=== PATIENT | male | born 1955 | race Caucasian/White ===

== ENCOUNTER 2016-04-10 16:31 | Emergency (ER) | payer MEDICARE, MEDICAID ==
[~2016-04-10] VITALS: Ht 182.9 cm; Wt 79.5 kg
[~2016-04-10 16:31] MED LIST: DULO20CA30 PO; GABA-531 PO; GABA400C PO; MAG1CAPS4 PO; OLAN10TA22 PO
[2016-04-10] MEDS ORDERED: SIME120L PO (17:02)
[2016-04-10] MEDS ORDERED: NAPR-58 PO (17:02)
[2016-04-10] MEDS ORDERED: OLAN10TA3 PO (17:02)
[2016-04-10] MEDS ORDERED: MOM30 PO (17:02)
[2016-04-10 19:32] VITALS: BP 144/105
[2016-04-10] MEDS ORDERED: TraMADol HCL 50 MG TABLET PO ONE (19:45)
[2016-04-10] MEDS ORDERED: LORazepam 2 MG/ML VIAL IM ONE (20:15)
== END 2016-04-10 20:36 | disposition home or self-care (01) ==
LOC: EMS 16:34
DX: S09.90XA Unspecified injury of head, initial encounter (principal); M62.838 Other muscle spasm; J44.9 Chronic obstructive pulmonary disease, unspecified; F17.210 Nicotine dependence, cigarettes, uncomplicated; Z91.030 Bee allergy status; W21.09XA Struck by other hit or thrown ball, initial encounter; Y93.89 Activity, other specified; Y92.89 Other specified places as the place of occurrence of the external cause; Y99.8 Other external cause status
CPT/HCPCS: 70450; 72125; 96372; 99284; J2060

== ENCOUNTER 2016-12-15 10:00 | Inpatient (IN) | payer MEDICARE ==
[~2016-12-15] VITALS: Ht 180.3 cm; Wt 68.0 kg
[~2016-12-15 10:00] MED LIST changes: -GABA-531 PO; +MOM30 PO; +NAPR-58 PO; +OLAN10TA3 PO; +SIME120L PO
[2016-12-15] MEDS ORDERED: GuaiFENesin/D-METHORPHAN [SUGAR-FREE] 200-20MG/10 ML SYRUP UDCUP PO PRN (10:15)
[2016-12-15] MEDS ORDERED: PROMETHAZINE HCL 25 MG TABLET PO PRN (10:15)
[2016-12-15] MEDS ORDERED: ZOLPIDEM TARTRATE 10 MG TABLET PO PRN (10:15)
[2016-12-15] MEDS ORDERED: MAGNESIUM HYDROXIDE SUSPENSION 30 ML UDCUP PO PRN (10:15)
[2016-12-15] MEDS ORDERED: RisperiDONE 1 MG TABLET PO PRN (10:15)
[2016-12-15] MEDS ORDERED: TUBERCULIN, PURIFIED PROTEIN DERIVATIVE 5 TU/0.1 ML SYG ID ONE (10:15)
[2016-12-15] MEDS ORDERED: MAG HYDROX/AL HYDROX/SIMETH ES 30 ML SUSPENSION UDCUP PO PRN (10:15)
[2016-12-15] MEDS ORDERED: ACETAMINOPHEN 325 MG TABLET PO PRN (10:15)
[2016-12-15] MEDS ORDERED: HydrOXYzine PAMOATE 50 MG CAPSULE PO PRN (10:15)
[2016-12-15] MEDS ORDERED: LOPERAMIDE HCL 2 MG CAPSULE PO PRN (10:15)
[2016-12-15] MEDS ORDERED: LORazepam 2 MG/ML VIAL IM ONE (12:30)
[2016-12-15] MEDS ORDERED: DiphenhydrAMINE HCL 50 MG/ML VIAL IM ONE (12:30)
[2016-12-15] MEDS ORDERED: HALOPERIDOL LACTATE 5 MG/ML VIAL IM ONE (12:30)
[2016-12-15] MEDS: GABAPENTIN 300 MG CAPSULE PO SCH ×3 (13:00→20:35)
[2016-12-15] MEDS ORDERED: RISP2 PO (13:11)
[2016-12-15] MEDS ORDERED: OLAN10TA3 PO (13:11)
[2016-12-15] MEDS ORDERED: RISPC50 IM (13:11)
[2016-12-15] MEDS ORDERED: GABA-531 PO (13:11)
[2016-12-15] MEDS ORDERED: NAPR-58 PO (13:11)
[2016-12-15] MEDS ORDERED: DULO20CA30 PO (13:11)
[2016-12-15 13:29] VITALS: BP 144/72
[2016-12-15] MEDS ORDERED: PNEUMOCOCCAL VACCINE POLYVALENT 0.5 ML VIAL [PPSV23] IM ONE (15:15)
[2016-12-15] MEDS ORDERED: INFLUENZA VIRUS VACCINE QVS 2017-18 (3YR+)/PF 60 MCG/0.5 ML SYRINGE IM ONE (15:15)
[2016-12-15 16:00] VITALS: BP 138/69
[2016-12-15] MEDS ORDERED: RisperiDONE MICROSPHERES 50 MG/2 ML SYRINGE IM ONE (16:00)
[2016-12-15] MEDS: THIAMINE HCL 100 MG TABLET PO SCH (16:52)
[2016-12-15] MEDS: LORazepam 2 MG TABLET PO PRN (16:53)
[2016-12-15] MEDS: RisperiDONE 3 MG TABLET PO SCH (20:35)
[2016-12-15] MEDS: DIVALPROEX SODIUM 500 MG ER TABLET PO SCH (20:35)
[2016-12-16 08:07] VITALS: BP 104/67
[2016-12-16 08:28] LABS: BASOPHILS % (AUTO) 0.2 % (0.0-2.0); EOSINOPHILS % (AUTO) 2.7 % (1.0-6.0); HEMATOCRIT 44.6 % (41-53); LYMPHOCYTES # (AUTO) 1.7 K/uL (1.0-4.8); LYMPHOCYTES % (AUTO) 24.3 % (22.0-44.0); MEAN CORPUSCULAR HEMOGLOBIN 32.2 pg (26.0-34.0); MEAN CORPUSCULAR HGB CONC 33.7 G/dL (31.0-37.0); MEAN CORPUSCULAR VOLUME 96 fL (80-100); MONOCYTES # (AUTO) 0.4 K/uL (0.1-1.0); MONOCYTES % (AUTO) 5.8 % (2.0-9.0); NEUTROPHILS # (AUTO) 4.7 K/uL (1.8-7.7); RED BLOOD CELL COUNT(AUTO) 4.66 MIL/uL (4.50-5.90); RED CELL DISTRIBUTION WIDTH 14.5 % (11.5-14.5)
[2016-12-16 08:46] LABS: HEMOGLOBIN A1C 5.2 % (4.5-6.2)
[2016-12-16 08:53] LABS: ALANINE AMINOTRANSFERASE 31 U/L (12-78); ALBUMIN 3.4 g/dL (3.4-5.0); ANION GAP 7 mmol/L (8-16); ASPARTATE AMINOTRANSFERASE 42 U/L (15-37); BILIRUBIN,TOTAL 0.6 mg/dL (0.1-1.0); CALCIUM, TOTAL 8.4 mg/dL (8.8-10.5); CARBON DIOXIDE 26 mmol/L (22-29); CHLORIDE 109 mmol/L (98-107); CHOL/HDL RATIO 2.4 (4.2-7.3); GLOMERULAR FILTR. RATE CALC > 60 mL/min (>60); POTASSIUM 4.3 mmol/L (3.5-5.1); SODIUM SERUM 142 mmol/L (136-145); THYROID STIMULATING HORMONE 1.17 uIU/mL (0.36-3.74); TOTAL PROTEIN, SERUM 6.6 g/dL (6.4-8.2); UREA NITROGEN, BLOOD 17 mg/dL (7-18)
[2016-12-16] MEDS ORDERED: RisperiDONE MICROSPHERES 50 MG/2 ML SYRINGE IM ONE (09:00)
[2016-12-16 09:28] LABS: PLATELET COUNT (AUTO) 86 K/uL (150-450)
[2016-12-16] MEDS: THIAMINE HCL 100 MG TABLET PO SCH ×2 (09:53→17:00)
[2016-12-16] MEDS: NALTREXONE HCL 50 MG TABLET PO SCH (09:53)
[2016-12-16] MEDS: GABAPENTIN 300 MG CAPSULE PO SCH ×4 (09:53→20:27)
[2016-12-16] MEDS: FOLIC ACID 1 MG TABLET PO SCH (09:53)
[2016-12-16] MEDS: LORazepam 2 MG TABLET PO PRN (09:54)
[2016-12-16] MEDS: MULTIVITAMINS WITH MINERALS, THERAPEUTIC TABLET PO SCH (09:54)
[2016-12-16 16:00] VITALS: BP 135/84
[2016-12-16] MEDS: RisperiDONE 3 MG TABLET PO SCH (20:27)
[2016-12-16] MEDS: DIVALPROEX SODIUM 500 MG ER TABLET PO SCH (20:27)
[2016-12-17 06:12] LABS: HEPATITIS Bs ANTIGEN SCREEN P Negative (Negative); HEPATITIS C AB SCREEN >11.0 s/co ratio (0.0-0.9)
[2016-12-17 06:30] VITALS: BP 116/63
[2016-12-17 08:05] VITALS: BP 116/83
[2016-12-17] MEDS: MULTIVITAMINS WITH MINERALS, THERAPEUTIC TABLET PO SCH (08:40)
[2016-12-17] MEDS: GABAPENTIN 300 MG CAPSULE PO SCH ×4 (08:40→20:22)
[2016-12-17] MEDS: FOLIC ACID 1 MG TABLET PO SCH (08:40)
[2016-12-17] MEDS: NALTREXONE HCL 50 MG TABLET PO SCH (08:40)
[2016-12-17] MEDS: THIAMINE HCL 100 MG TABLET PO SCH ×2 (08:41→16:52)
[2016-12-17] MEDS: LORazepam 2 MG TABLET PO PRN (08:48)
[2016-12-17 16:00] VITALS: BP 138/88
[2016-12-17] MEDS: RisperiDONE 3 MG TABLET PO SCH (20:22)
[2016-12-17] MEDS: DIVALPROEX SODIUM 500 MG ER TABLET PO SCH (20:22)
[2016-12-18 06:21] VITALS: BP 113/71
[2016-12-18 08:05] VITALS: BP 117/84
[2016-12-18] MEDS: THIAMINE HCL 100 MG TABLET PO SCH ×2 (08:46→16:37)
[2016-12-18] MEDS: MULTIVITAMINS WITH MINERALS, THERAPEUTIC TABLET PO SCH (08:46)
[2016-12-18] MEDS: GABAPENTIN 300 MG CAPSULE PO SCH ×4 (08:46→20:22)
[2016-12-18] MEDS: NALTREXONE HCL 50 MG TABLET PO SCH (08:46)
[2016-12-18] MEDS: FOLIC ACID 1 MG TABLET PO SCH (08:55)
[2016-12-18 16:25] VITALS: BP 121/83
[2016-12-18] MEDS: LORazepam 2 MG TABLET PO PRN (16:37)
[2016-12-18] MEDS: DIVALPROEX SODIUM 500 MG ER TABLET PO SCH (20:22)
[2016-12-18] MEDS: RisperiDONE 3 MG TABLET PO SCH (20:22)
[2016-12-19 06:14] VITALS: BP 114/78
[2016-12-19 08:25] VITALS: BP 106/80
[2016-12-19] MEDS: FOLIC ACID 1 MG TABLET PO SCH (08:44)
[2016-12-19] MEDS: MULTIVITAMINS WITH MINERALS, THERAPEUTIC TABLET PO SCH (08:44)
[2016-12-19] MEDS: THIAMINE HCL 100 MG TABLET PO SCH ×2 (08:44→16:26)
[2016-12-19] MEDS: NALTREXONE HCL 50 MG TABLET PO SCH (08:44)
[2016-12-19] MEDS: GABAPENTIN 300 MG CAPSULE PO SCH (08:45)
[2016-12-19] MEDS: LORazepam 2 MG TABLET PO PRN ×2 (10:14→14:25)
[2016-12-19] MEDS: GABAPENTIN 400 MG CAPSULE PO SCH ×3 (13:08→20:08)
[2016-12-19 16:00] VITALS: BP 134/88
[2016-12-19] MEDS: RisperiDONE 3 MG TABLET PO SCH (20:08)
[2016-12-19] MEDS: DIVALPROEX SODIUM 500 MG ER TABLET PO SCH (20:08)
[2016-12-20 05:53] VITALS: BP 127/85
[2016-12-20 08:06] VITALS: BP 109/76
[2016-12-20] MEDS: MULTIVITAMINS WITH MINERALS, THERAPEUTIC TABLET PO SCH (08:29)
[2016-12-20] MEDS: GABAPENTIN 400 MG CAPSULE PO SCH ×4 (08:29→20:20)
[2016-12-20] MEDS: NALTREXONE HCL 50 MG TABLET PO SCH (08:29)
[2016-12-20] MEDS: THIAMINE HCL 100 MG TABLET PO SCH ×2 (08:29→17:01)
[2016-12-20] MEDS: FOLIC ACID 1 MG TABLET PO SCH (08:30)
[2016-12-20] MEDS: LORazepam 2 MG TABLET PO PRN ×2 (08:30→17:01)
[2016-12-20 16:00] VITALS: BP 124/80
[2016-12-20] MEDS: RisperiDONE 3 MG TABLET PO SCH (20:20)
[2016-12-20] MEDS: DIVALPROEX SODIUM 500 MG ER TABLET PO SCH (20:20)
[2016-12-21 02:20] VITALS: BP 115/88
[2016-12-21 08:12] VITALS: BP 138/89
[2016-12-21] MEDS: GABAPENTIN 400 MG CAPSULE PO SCH ×4 (08:15→20:36)
[2016-12-21] MEDS: MULTIVITAMINS WITH MINERALS, THERAPEUTIC TABLET PO SCH (08:15)
[2016-12-21] MEDS: NALTREXONE HCL 50 MG TABLET PO SCH (08:15)
[2016-12-21] MEDS: FOLIC ACID 1 MG TABLET PO SCH (08:15)
[2016-12-21] MEDS: THIAMINE HCL 100 MG TABLET PO SCH ×2 (08:15→16:38)
[2016-12-21] MEDS: LORazepam 2 MG TABLET PO PRN ×2 (08:23→16:36)
[2016-12-21 16:01] VITALS: BP 128/88
[2016-12-21] MEDS: RisperiDONE 3 MG TABLET PO SCH (20:37)
[2016-12-21] MEDS: DIVALPROEX SODIUM 500 MG ER TABLET PO SCH (20:37)
[2016-12-22 03:29] VITALS: BP 120/77
[2016-12-22 08:23] VITALS: BP 126/71
[2016-12-22] MEDS: FOLIC ACID 1 MG TABLET PO SCH (08:43)
[2016-12-22] MEDS: THIAMINE HCL 100 MG TABLET PO SCH ×2 (08:43→16:33)
[2016-12-22] MEDS: GABAPENTIN 400 MG CAPSULE PO SCH (08:43)
[2016-12-22] MEDS: LORazepam 2 MG TABLET PO PRN (08:44)
[2016-12-22] MEDS: MULTIVITAMINS WITH MINERALS, THERAPEUTIC TABLET PO SCH (08:44)
[2016-12-22] MEDS: NALTREXONE HCL 50 MG TABLET PO SCH (08:44)
[2016-12-22 09:18] LABS: ALANINE AMINOTRANSFERASE 35 U/L (12-78); ALBUMIN 3.9 g/dL (3.4-5.0); ANION GAP 9 mmol/L (8-16); ASPARTATE AMINOTRANSFERASE 33 U/L (15-37); BILIRUBIN,TOTAL 0.6 mg/dL (0.1-1.0); CALCIUM, TOTAL 8.9 mg/dL (8.8-10.5); CARBON DIOXIDE 28 mmol/L (22-29); CHLORIDE 104 mmol/L (98-107); CREATININE 0.98 mg/dL (0.60-1.30); GLOMERULAR FILTR. RATE CALC > 60 mL/min (>60); POTASSIUM 3.8 mmol/L (3.5-5.1); SODIUM SERUM 141 mmol/L (136-145); UREA NITROGEN, BLOOD 23 mg/dL (7-18)
[2016-12-22] MEDS: GABAPENTIN 300 MG CAPSULE PO SCH ×3 (13:03→20:26)
[2016-12-22] MEDS ORDERED: LORazepam 0.5 MG TABLET PO PRN (14:15)
[2016-12-22 16:00] VITALS: BP 135/88
[2016-12-22] MEDS: DIVALPROEX SODIUM 500 MG ER TABLET PO SCH (20:26)
[2016-12-22] MEDS ORDERED: RisperiDONE 4 MG TABLET PO SCH (21:00)
[2016-12-23 07:12] VITALS: BP 142/87
[2016-12-23 08:23] VITALS: BP 135/79
[2016-12-23] MEDS: GABAPENTIN 300 MG CAPSULE PO SCH ×2 (08:59→13:10)
[2016-12-23] MEDS: MULTIVITAMINS WITH MINERALS, THERAPEUTIC TABLET PO SCH (08:59)
[2016-12-23] MEDS: THIAMINE HCL 100 MG TABLET PO SCH ×2 (08:59→16:01)
[2016-12-23] MEDS: NALTREXONE HCL 50 MG TABLET PO SCH (08:59)
[2016-12-23] MEDS: FOLIC ACID 1 MG TABLET PO SCH (08:59)
[2016-12-23 16:03] VITALS: BP 138/88
[2016-12-23] MEDS: GABAPENTIN 100 MG CAPSULE PO SCH ×2 (16:03→20:10)
[2016-12-23] MEDS: DIVALPROEX SODIUM 500 MG ER TABLET PO SCH (20:10)
[2016-12-23] MEDS: RisperiDONE 2 MG TABLET PO SCH (20:10)
[2016-12-24 06:58] VITALS: BP 117/68
[2016-12-24 08:09] VITALS: BP 106/67
[2016-12-24] MEDS: FOLIC ACID 1 MG TABLET PO SCH (08:34)
[2016-12-24] MEDS: MULTIVITAMINS WITH MINERALS, THERAPEUTIC TABLET PO SCH (08:35)
[2016-12-24] MEDS: NALTREXONE HCL 50 MG TABLET PO SCH (08:35)
[2016-12-24] MEDS: GABAPENTIN 100 MG CAPSULE PO SCH ×5 (08:35→20:26)
[2016-12-24] MEDS: THIAMINE HCL 100 MG TABLET PO SCH ×2 (08:35→16:16)
[2016-12-24 16:22] VITALS: BP 134/82
[2016-12-24] MEDS: RisperiDONE 2 MG TABLET PO SCH (20:26)
[2016-12-24] MEDS: DIVALPROEX SODIUM 500 MG ER TABLET PO SCH (20:26)
[2016-12-25 06:41] VITALS: BP 124/88
[2016-12-25 08:20] VITALS: BP 135/83
[2016-12-25 08:27] LABS: GLUCOSE,POINT OF CARE 121 MG/DL (70-110)
[2016-12-25] MEDS: MULTIVITAMINS WITH MINERALS, THERAPEUTIC TABLET PO SCH (09:06)
[2016-12-25] MEDS: NALTREXONE HCL 50 MG TABLET PO SCH (09:07)
[2016-12-25] MEDS: FOLIC ACID 1 MG TABLET PO SCH (09:07)
[2016-12-25] MEDS: THIAMINE HCL 100 MG TABLET PO SCH (09:07)
[2016-12-25] MEDS: GABAPENTIN 100 MG CAPSULE PO SCH ×4 (09:07→20:36)
[2016-12-25] MEDS ORDERED: DIVA500T52 PO (14:23)
[2016-12-25] MEDS ORDERED: GABA-529 PO (14:23)
[2016-12-25] MEDS ORDERED: RISP2 PO (14:23)
[2016-12-25] MEDS ORDERED: NALT50TA PO (14:23)
[2016-12-25] MEDS ORDERED: RISPC50 IM (14:23)
[2016-12-25 16:00] VITALS: BP 132/79
[2016-12-25 16:58] LABS: GLUCOSE,POINT OF CARE 100 MG/DL (70-110)
[2016-12-25] MEDS: DIVALPROEX SODIUM 500 MG ER TABLET PO SCH (20:35)
[2016-12-25] MEDS: RisperiDONE 2 MG TABLET PO SCH (20:36)
[2016-12-25 21:17] LABS: GLUCOSE,POINT OF CARE 120 MG/DL (70-110)
[2016-12-26 06:28] VITALS: BP 131/85
[2016-12-26 07:22] LABS: GLUCOSE,POINT OF CARE 157 MG/DL (70-110)
[2016-12-26 08:18] VITALS: BP 135/76
[2016-12-26] MEDS: MULTIVITAMINS WITH MINERALS, THERAPEUTIC TABLET PO SCH (09:13)
[2016-12-26] MEDS: GABAPENTIN 100 MG CAPSULE PO SCH ×2 (09:13→13:02)
[2016-12-26] MEDS: NALTREXONE HCL 50 MG TABLET PO SCH (09:13)
[2016-12-26] MEDS ORDERED: DIVA500T52 PO (09:40)
[2016-12-26] MEDS ORDERED: NALT50TA6 PO (09:41)
[2016-12-26] MEDS ORDERED: GABA-529 PO (09:41)
[2016-12-30] MEDS ORDERED: RisperiDONE MICROSPHERES 50 MG/2 ML SYRINGE IM SCH (09:00)
== END 2016-12-26 13:00 | disposition home or self-care (01) | DRG 885 ==
LOC: B3A 10:00
PROVIDERS: ADMIT Psychiatry & Neurology Psychiatry; ATTEND Psychiatry & Neurology Psychiatry
DX: F25.9 Schizoaffective disorder, unspecified (principal); B19.10 Unspecified viral hepatitis B without hepatic coma; D69.6 Thrombocytopenia, unspecified; G40.909 Epilepsy, unspecified, not intractable, without status epilepticus; Z91.19 Patient's noncompliance with other medical treatment and regimen; B17.9 Acute viral hepatitis, unspecified; Z28.21 Immunization not carried out because of patient refusal; B18.2 Chronic viral hepatitis C; F12.90 Cannabis use, unspecified, uncomplicated; F17.210 Nicotine dependence, cigarettes, uncomplicated; I10 Essential (primary) hypertension; J44.9 Chronic obstructive pulmonary disease, unspecified; Z82.49 Family history of ischemic heart disease and other diseases of the circulatory system; M54.9 Dorsalgia, unspecified; R79.89 Other specified abnormal findings of blood chemistry; Z59.9 Problem related to housing and economic circumstances, unspecified; Z63.9 Problem related to primary support group, unspecified; Z80.9 Family history of malignant neoplasm, unspecified
CPT/HCPCS: 80074; 82105; 82962; 83036; 84439; 84443; 86592; 90471; J2794

== ENCOUNTER 2017-08-27 22:37 | Emergency (ER) | payer MEDICARE, MEDICAID ==
[~2017-08-27] VITALS: Ht 182.9 cm; Wt 63.2 kg
[~2017-08-27 22:37] MED LIST changes: +DIVA500T52 PO; -DULO20CA30 PO; +GABA-529 PO; -GABA400C PO; -MAG1CAPS4 PO; -MOM30 PO; +NALT50TA PO; +NALT50TA6 PO; -NAPR-58 PO; -OLAN10TA22 PO; -OLAN10TA3 PO; +RISP2 PO; +RISPC50 IM; -SIME120L PO
[2017-08-28] MEDS ORDERED: KETOROLAC TROMETHAMINE 30 MG/ML VIAL IM ONE (00:30)
[2017-08-28 00:59] VITALS: BP 128/88
== END 2017-08-28 01:35 | disposition home or self-care (01) ==
LOC: EMS 22:38
DX: S20.212A Contusion of left front wall of thorax, initial encounter (principal); J44.9 Chronic obstructive pulmonary disease, unspecified; F17.210 Nicotine dependence, cigarettes, uncomplicated; Z91.030 Bee allergy status; W18.30XA Fall on same level, unspecified, initial encounter; Y93.89 Activity, other specified; Y92.89 Other specified places as the place of occurrence of the external cause; Y99.8 Other external cause status
CPT/HCPCS: 71100; 96372; 99284; J1885

== ENCOUNTER 2017-11-27 10:58 | Inpatient (IN) | payer MEDICARE, MEDICAID ==
[~2017-11-27] VITALS: Ht 182.9 cm; Wt 59.0 kg
[2017-11-27] MEDS ORDERED: OLANZapine 5 MG RAPDIS TABLET PO PRN (11:15)
[2017-11-27] MEDS ORDERED: HALOPERIDOL LACTATE 5 MG/ML VIAL IM ONE (11:15)
[2017-11-27] MEDS ORDERED: MAG HYDROX/AL HYDROX/SIMETH ES 30 ML SUSPENSION UDCUP PO PRN (11:15)
[2017-11-27] MEDS ORDERED: HydrOXYzine PAMOATE 50 MG CAPSULE PO PRN (11:15)
[2017-11-27] MEDS ORDERED: LOPERAMIDE HCL 2 MG CAPSULE PO PRN (11:15)
[2017-11-27] MEDS ORDERED: GuaiFENesin/D-METHORPHAN [SUGAR-FREE] 200-20MG/10 ML SYRUP UDCUP PO PRN (11:15)
[2017-11-27] MEDS ORDERED: DiphenhydrAMINE HCL 50 MG/ML VIAL IM ONE (11:15)
[2017-11-27] MEDS ORDERED: PROMETHAZINE HCL 25 MG TABLET PO PRN (11:15)
[2017-11-27] MEDS ORDERED: LORazepam 2 MG/ML VIAL IM ONE (11:15)
[2017-11-27 11:20] VITALS: BP 119/80
[2017-11-27] MEDS ORDERED: RisperiDONE 1 MG TABLET PO PRN (11:30)
[2017-11-27] MEDS: GABAPENTIN 100 MG CAPSULE PO SCH ×3 (13:00→20:55)
[2017-11-27] MEDS ORDERED: PNEUMOCOCCAL VACCINE POLYVALENT 0.5 ML VIAL [PPSV23] IM ONE (14:45)
[2017-11-27] MEDS ORDERED: RisperiDONE MICROSPHERES 50 MG/2 ML SYRINGE IM ONE (16:00)
[2017-11-27 16:39] VITALS: BP 135/77
[2017-11-27] MEDS: THIAMINE HCL 100 MG TABLET PO SCH (17:20)
[2017-11-27] MEDS: RisperiDONE 2 MG TABLET PO SCH (20:55)
[2017-11-27] MEDS ORDERED: OLANZapine 5 MG RAPDIS TABLET PO SCH (21:00)
[2017-11-28 05:36] VITALS: BP 143/78
[2017-11-28 08:13] LABS: BASOPHILS % (AUTO) 0.5 % (0.0-2.0); HEMATOCRIT 41.5 % (41-53); LYMPHOCYTES # (AUTO) 1.5 K/uL (1.0-4.8); LYMPHOCYTES % (AUTO) 20.4 % (22.0-44.0); MEAN CORPUSCULAR HEMOGLOBIN 32.4 pg (26.0-34.0); MEAN CORPUSCULAR HGB CONC 33.6 G/dL (31.0-37.0); MEAN CORPUSCULAR VOLUME 96 fL (80-100); MONOCYTES # (AUTO) 0.4 K/uL (0.1-1.0); NEUTROPHILS # (AUTO) 5.1 K/uL (1.8-7.7); NEUTROPHILS % (AUTO) 71.1 % (40.0-70.0); PLATELET COUNT (AUTO) 101 K/uL (150-450); RED BLOOD CELL COUNT(AUTO) 4.31 MIL/uL (4.50-5.90); RED CELL DISTRIBUTION WIDTH 14.5 % (11.5-14.5)
[2017-11-28 08:24] LABS: HEMOGLOBIN A1C 4.9 % (4.5-6.2)
[2017-11-28] MEDS: MULTIVITAMINS WITH MINERALS, THERAPEUTIC TABLET PO SCH (08:40)
[2017-11-28] MEDS: NALTREXONE HCL 50 MG TABLET PO SCH (08:40)
[2017-11-28] MEDS: THIAMINE HCL 100 MG TABLET PO SCH ×2 (08:40→16:24)
[2017-11-28] MEDS: FOLIC ACID 1 MG TABLET PO SCH (08:40)
[2017-11-28] MEDS: GABAPENTIN 100 MG CAPSULE PO SCH ×4 (08:40→20:53)
[2017-11-28 08:45] LABS: ALANINE AMINOTRANSFERASE 32 U/L (12-78); ALBUMIN 3.1 g/dL (3.4-5.0); ALKALINE PHOSPHATASE 53 U/L (46-116); ANION GAP 7 mmol/L (8-16); ASPARTATE AMINOTRANSFERASE 46 U/L (15-37); BILIRUBIN,TOTAL 0.4 mg/dL (0.1-1.0); CALCIUM, TOTAL 8.2 mg/dL (8.8-10.5); CARBON DIOXIDE 27 mmol/L (22-29); CHLORIDE 106 mmol/L (98-107); CHOL/HDL RATIO 1.6 (4.2-7.3); CHOLESTEROL 67 mg/dL (131-200); FREE T4 (FREE THYROXINE) 0.98 ng/dL (0.76-1.46); GLOMERULAR FILTR. RATE CALC > 60 mL/min (>60); GLUCOSE,RANDOM 83 mg/dL (70-110); HDL CHOLESTEROL 43 mg/dL (40-60); LDL CHOL (CALC.) 21 mg/dL (0-130); SODIUM SERUM 140 mmol/L (136-145); THYROID STIMULATING HORMONE 1.94 uIU/mL (0.36-3.74); TOTAL PROTEIN, SERUM 6.4 g/dL (6.4-8.2); UREA NITROGEN, BLOOD 18 mg/dL (7-18)
[2017-11-28 09:45] VITALS: BP 127/87
[2017-11-28 10:01] LABS: TRIGLYCERIDES < 15 mg/dL (15-150)
[2017-11-28 16:15] VITALS: BP 125/72
[2017-11-28] MEDS: LORazepam 2 MG TABLET PO PRN (16:25)
[2017-11-28] MEDS: RisperiDONE 2 MG TABLET PO SCH (20:53)
[2017-11-28] MEDS: ZOLPIDEM TARTRATE 10 MG TABLET PO PRN (20:53)
[2017-11-29 06:40] VITALS: BP 116/75
[2017-11-29 08:11] VITALS: BP 114/80
[2017-11-29] MEDS: THIAMINE HCL 100 MG TABLET PO SCH ×2 (08:49→17:09)
[2017-11-29] MEDS: MULTIVITAMINS WITH MINERALS, THERAPEUTIC TABLET PO SCH (08:49)
[2017-11-29] MEDS: FOLIC ACID 1 MG TABLET PO SCH (08:49)
[2017-11-29] MEDS: GABAPENTIN 100 MG CAPSULE PO SCH ×4 (08:49→21:01)
[2017-11-29] MEDS: NALTREXONE HCL 50 MG TABLET PO SCH (08:50)
[2017-11-29] MEDS: LORazepam 2 MG TABLET PO PRN ×2 (09:27→17:09)
[2017-11-29 16:15] VITALS: BP 121/75
[2017-11-29] MEDS: RisperiDONE 2 MG TABLET PO SCH (21:01)
[2017-11-30 06:02] VITALS: BP 135/87
[2017-11-30 09:00] VITALS: BP 129/82
[2017-11-30] MEDS: GABAPENTIN 100 MG CAPSULE PO SCH ×4 (09:06→20:56)
[2017-11-30] MEDS: FOLIC ACID 1 MG TABLET PO SCH (09:06)
[2017-11-30] MEDS: MULTIVITAMINS WITH MINERALS, THERAPEUTIC TABLET PO SCH (09:06)
[2017-11-30] MEDS: NALTREXONE HCL 50 MG TABLET PO SCH (09:06)
[2017-11-30] MEDS: THIAMINE HCL 100 MG TABLET PO SCH ×2 (09:06→17:14)
[2017-11-30] MEDS: LORazepam 2 MG TABLET PO PRN ×2 (09:09→14:29)
[2017-11-30 16:00] VITALS: BP 125/80
[2017-11-30] MEDS: RisperiDONE 2 MG TABLET PO SCH (20:56)
[2017-12-01 08:15] VITALS: BP 112/66
[2017-12-01] MEDS: MULTIVITAMINS WITH MINERALS, THERAPEUTIC TABLET PO SCH (08:57)
[2017-12-01] MEDS: THIAMINE HCL 100 MG TABLET PO SCH ×2 (08:57→17:08)
[2017-12-01] MEDS: GABAPENTIN 100 MG CAPSULE PO SCH ×4 (08:57→21:20)
[2017-12-01] MEDS: FOLIC ACID 1 MG TABLET PO SCH (08:57)
[2017-12-01] MEDS: LORazepam 2 MG TABLET PO PRN ×2 (08:57→17:08)
[2017-12-01] MEDS: NALTREXONE HCL 50 MG TABLET PO SCH (08:57)
[2017-12-01 16:00] VITALS: BP 138/88
[2017-12-01] MEDS ORDERED: RisperiDONE 4 MG TABLET PO SCH (21:00)
[2017-12-02 08:16] VITALS: BP 128/89
[2017-12-02] MEDS: FOLIC ACID 1 MG TABLET PO SCH (09:10)
[2017-12-02] MEDS: NALTREXONE HCL 50 MG TABLET PO SCH (09:10)
[2017-12-02] MEDS: MULTIVITAMINS WITH MINERALS, THERAPEUTIC TABLET PO SCH (09:10)
[2017-12-02] MEDS: THIAMINE HCL 100 MG TABLET PO SCH ×2 (09:10→17:13)
[2017-12-02] MEDS: GABAPENTIN 100 MG CAPSULE PO SCH ×4 (09:14→21:01)
[2017-12-02 16:30] VITALS: BP 116/77
[2017-12-02] MEDS ORDERED: IBUPROFEN 600 MG TABLET PO SCH (18:15)
[2017-12-02] MEDS: RisperiDONE 1 MG TABLET PO SCH (21:01)
[2017-12-03 05:54] VITALS: BP 109/64
[2017-12-03 08:37] VITALS: BP 105/69
[2017-12-03] MEDS: FOLIC ACID 1 MG TABLET PO SCH (08:52)
[2017-12-03] MEDS: MULTIVITAMINS WITH MINERALS, THERAPEUTIC TABLET PO SCH (08:53)
[2017-12-03] MEDS: THIAMINE HCL 100 MG TABLET PO SCH ×2 (08:53→16:14)
[2017-12-03] MEDS: NALTREXONE HCL 50 MG TABLET PO SCH (08:53)
[2017-12-03] MEDS: GABAPENTIN 100 MG CAPSULE PO SCH ×4 (08:53→20:19)
[2017-12-03] MEDS: LORazepam 2 MG TABLET PO PRN (13:01)
[2017-12-03 16:15] VITALS: BP 123/78
[2017-12-03] MEDS: RisperiDONE 1 MG TABLET PO SCH (20:18)
[2017-12-04 05:25] VITALS: BP 121/68
[2017-12-04] MEDS: LORazepam 2 MG TABLET PO PRN ×4 (06:22→18:59)
[2017-12-04 08:33] VITALS: BP 122/75
[2017-12-04] MEDS: MULTIVITAMINS WITH MINERALS, THERAPEUTIC TABLET PO SCH (09:13)
[2017-12-04] MEDS: FOLIC ACID 1 MG TABLET PO SCH (09:13)
[2017-12-04] MEDS: THIAMINE HCL 100 MG TABLET PO SCH ×2 (09:13→16:01)
[2017-12-04] MEDS: NALTREXONE HCL 50 MG TABLET PO SCH (09:13)
[2017-12-04] MEDS: GABAPENTIN 100 MG CAPSULE PO SCH ×4 (09:13→20:02)
[2017-12-04 16:48] VITALS: BP 113/74
[2017-12-04] MEDS: RisperiDONE 3 MG TABLET PO SCH (20:02)
[2017-12-04 20:06] VITALS: BP 112/80
[2017-12-04] MEDS: ZOLPIDEM TARTRATE 10 MG TABLET PO PRN (20:06)
[2017-12-05 06:38] VITALS: BP 110/88
[2017-12-05 08:45] VITALS: BP 130/83
[2017-12-05] MEDS: MULTIVITAMINS WITH MINERALS, THERAPEUTIC TABLET PO SCH (09:06)
[2017-12-05] MEDS: NALTREXONE HCL 50 MG TABLET PO SCH (09:07)
[2017-12-05] MEDS: THIAMINE HCL 100 MG TABLET PO SCH ×2 (09:07→16:07)
[2017-12-05] MEDS: GABAPENTIN 100 MG CAPSULE PO SCH ×4 (09:07→20:26)
[2017-12-05] MEDS: LORazepam 2 MG TABLET PO PRN ×2 (09:07→13:36)
[2017-12-05] MEDS: FOLIC ACID 1 MG TABLET PO SCH (09:07)
[2017-12-05 16:21] VITALS: BP 110/72
[2017-12-05] MEDS: RisperiDONE 3 MG TABLET PO SCH (20:26)
[2017-12-05] MEDS: ZOLPIDEM TARTRATE 10 MG TABLET PO PRN (20:26)
[2017-12-06 06:40] VITALS: BP 136/84
[2017-12-06 08:13] VITALS: BP 116/72
[2017-12-06] MEDS: LORazepam 2 MG TABLET PO PRN ×2 (09:00→16:38)
[2017-12-06] MEDS: GABAPENTIN 100 MG CAPSULE PO SCH ×4 (09:00→20:09)
[2017-12-06] MEDS: THIAMINE HCL 100 MG TABLET PO SCH ×2 (09:00→16:38)
[2017-12-06] MEDS: FOLIC ACID 1 MG TABLET PO SCH (09:00)
[2017-12-06] MEDS: NALTREXONE HCL 50 MG TABLET PO SCH (09:00)
[2017-12-06] MEDS: MULTIVITAMINS WITH MINERALS, THERAPEUTIC TABLET PO SCH (09:00)
[2017-12-06 17:26] VITALS: BP 122/75
[2017-12-06] MEDS: IBUPROFEN 600 MG TABLET PO PRN (17:47)
[2017-12-06] MEDS: BACITRACIN 28.4 GM OINTMENT TP SCH (19:23)
[2017-12-06] MEDS: RisperiDONE 3 MG TABLET PO SCH (20:09)
[2017-12-06] MEDS: ZOLPIDEM TARTRATE 10 MG TABLET PO PRN (20:09)
[2017-12-06] MEDS: DOXYCYCLINE HYCLATE 100 MG CAPSULE PO SCH (20:09)
[2017-12-07 01:57] VITALS: BP 128/85
[2017-12-07] MEDS: ACETAMINOPHEN 325 MG TABLET PO PRN ×2 (02:14→13:23)
[2017-12-07] MEDS: LORazepam 2 MG TABLET PO PRN ×4 (02:36→20:15)
[2017-12-07 08:23] VITALS: BP 117/63
[2017-12-07] MEDS: MULTIVITAMINS WITH MINERALS, THERAPEUTIC TABLET PO SCH (09:10)
[2017-12-07] MEDS: FOLIC ACID 1 MG TABLET PO SCH (09:10)
[2017-12-07] MEDS: THIAMINE HCL 100 MG TABLET PO SCH (09:11)
[2017-12-07] MEDS: DOXYCYCLINE HYCLATE 100 MG CAPSULE PO SCH ×2 (09:11→16:39)
[2017-12-07] MEDS: GABAPENTIN 100 MG CAPSULE PO SCH ×4 (09:11→20:14)
[2017-12-07] MEDS: NALTREXONE HCL 50 MG TABLET PO SCH (09:11)
[2017-12-07] MEDS: BACITRACIN 28.4 GM OINTMENT TP SCH ×2 (09:12→16:40)
[2017-12-07] MEDS: IBUPROFEN 600 MG TABLET PO PRN ×2 (09:43→16:39)
[2017-12-07 16:32] VITALS: BP 109/80
[2017-12-07] MEDS: RisperiDONE 3 MG TABLET PO SCH (20:15)
[2017-12-08 05:27] VITALS: BP 116/80
[2017-12-08 06:25] VITALS: BP 120/72
[2017-12-08] MEDS: LORazepam 2 MG TABLET PO PRN ×2 (06:39→12:28)
[2017-12-08] MEDS: ACETAMINOPHEN 325 MG TABLET PO PRN (06:39)
[2017-12-08] MEDS: GABAPENTIN 100 MG CAPSULE PO SCH ×4 (08:28→20:46)
[2017-12-08] MEDS: DOXYCYCLINE HYCLATE 100 MG CAPSULE PO SCH ×2 (08:28→16:16)
[2017-12-08] MEDS: NALTREXONE HCL 50 MG TABLET PO SCH (08:28)
[2017-12-08] MEDS: BACITRACIN 28.4 GM OINTMENT TP SCH ×2 (08:47→16:55)
[2017-12-08 08:53] VITALS: BP 105/64
[2017-12-08] MEDS: MULTIVITAMINS WITH MINERALS, THERAPEUTIC TABLET PO SCH (09:53)
[2017-12-08] MEDS ORDERED: TUBERCULIN, PURIFIED PROTEIN DERIVATIVE 5 TU/0.1 ML SYG ID ONE (10:00)
[2017-12-08 13:30] VITALS: BP 111/69
[2017-12-08] MEDS: IBUPROFEN 600 MG TABLET PO PRN (13:32)
[2017-12-08 16:14] VITALS: BP 118/65
[2017-12-08] MEDS: LORazepam 0.5 MG TABLET PO PRN (16:16)
[2017-12-09 01:02] VITALS: BP 120/81
[2017-12-09 02:44] VITALS: BP 122/84
[2017-12-09] MEDS: LORazepam 0.5 MG TABLET PO PRN (02:47)
[2017-12-09] MEDS: IBUPROFEN 600 MG TABLET PO PRN (02:47)
[2017-12-09 06:16] VITALS: BP 117/78
[2017-12-09] MEDS: OLANZapine 5 MG RAPDIS TABLET PO PRN (06:17)
[2017-12-09 08:17] VITALS: BP 122/66
[2017-12-09 08:23] LABS: BASOPHILS % (AUTO) 0.6 % (0.0-2.0); EOSINOPHILS % (AUTO) 1.4 % (1.0-6.0); HEMATOCRIT 40.6 % (41-53); HEMOGLOBIN 13.7 g/dL (13.5-17.5); LYMPHOCYTES # (AUTO) 1.5 K/uL (1.0-4.8); LYMPHOCYTES % (AUTO) 24.1 % (22.0-44.0); MEAN CORPUSCULAR HEMOGLOBIN 32.5 pg (26.0-34.0); MEAN CORPUSCULAR HGB CONC 33.8 G/dL (31.0-37.0); MEAN CORPUSCULAR VOLUME 96 fL (80-100); MONOCYTES # (AUTO) 0.5 K/uL (0.1-1.0); MONOCYTES % (AUTO) 8.4 % (2.0-9.0); NEUTROPHILS # (AUTO) 4.1 K/uL (1.8-7.7); NEUTROPHILS % (AUTO) 65.5 % (40.0-70.0); PLATELET COUNT (AUTO) 122 K/uL (150-450); RED BLOOD CELL COUNT(AUTO) 4.22 MIL/uL (4.50-5.90)
[2017-12-09] MEDS ORDERED: CloZAPine 25 MG TABLET PO SCH (09:00)
[2017-12-09] MEDS: NALTREXONE HCL 50 MG TABLET PO SCH (09:32)
[2017-12-09] MEDS: GABAPENTIN 100 MG CAPSULE PO SCH ×4 (09:32→20:40)
[2017-12-09] MEDS: MULTIVITAMINS WITH MINERALS, THERAPEUTIC TABLET PO SCH (09:32)
[2017-12-09] MEDS: BACITRACIN 28.4 GM OINTMENT TP SCH ×2 (09:33→17:04)
[2017-12-09] MEDS: DOXYCYCLINE HYCLATE 100 MG CAPSULE PO SCH ×2 (09:59→17:04)
[2017-12-09 16:48] VITALS: BP 119/70
[2017-12-10 01:06] VITALS: BP 122/78
[2017-12-10] MEDS: LORazepam 0.5 MG TABLET PO PRN ×3 (06:02→15:15)
[2017-12-10] MEDS: GABAPENTIN 100 MG CAPSULE PO SCH ×4 (08:34→20:07)
[2017-12-10] MEDS: MULTIVITAMINS WITH MINERALS, THERAPEUTIC TABLET PO SCH (08:34)
[2017-12-10] MEDS: DOXYCYCLINE HYCLATE 100 MG CAPSULE PO SCH ×2 (08:34→16:24)
[2017-12-10] MEDS: BACITRACIN 28.4 GM OINTMENT TP SCH ×2 (08:34→16:24)
[2017-12-10] MEDS: NALTREXONE HCL 50 MG TABLET PO SCH (08:34)
[2017-12-10 08:44] VITALS: BP 111/74
[2017-12-10] MEDS ORDERED: CloZAPine 25 MG TABLET PO SCH ×2 (09:00→21:00)
[2017-12-10 16:13] VITALS: BP 103/72
[2017-12-11 02:34] VITALS: BP 130/79
[2017-12-11 08:18] VITALS: BP 121/83
[2017-12-11] MEDS ORDERED: RisperiDONE MICROSPHERES 50 MG/2 ML SYRINGE IM SCH (09:00)
[2017-12-11] MEDS ORDERED: CloZAPine 25 MG TABLET PO SCH ×2 (09:00→21:00)
[2017-12-11] MEDS: NALTREXONE HCL 50 MG TABLET PO SCH (09:18)
[2017-12-11] MEDS: DOXYCYCLINE HYCLATE 100 MG CAPSULE PO SCH ×2 (09:18→16:38)
[2017-12-11] MEDS: MULTIVITAMINS WITH MINERALS, THERAPEUTIC TABLET PO SCH (09:20)
[2017-12-11] MEDS: GABAPENTIN 100 MG CAPSULE PO SCH ×4 (09:20→20:36)
[2017-12-11] MEDS: BACITRACIN 28.4 GM OINTMENT TP SCH ×2 (09:20→16:38)
[2017-12-11] MEDS: LORazepam 0.5 MG TABLET PO PRN ×3 (09:28→18:53)
[2017-12-11 16:18] VITALS: BP_SYST 117; BP_SYST 123; BP_DIAS 84; BP_DIAS 85
[2017-12-12 00:47] VITALS: BP 116/78
[2017-12-12] MEDS: LORazepam 0.5 MG TABLET PO PRN ×5 (00:47→20:53)
[2017-12-12 05:35] VITALS: BP 113/81
[2017-12-12 08:46] VITALS: BP 117/83
[2017-12-12] MEDS: GABAPENTIN 100 MG CAPSULE PO SCH ×4 (08:47→20:33)
[2017-12-12] MEDS: DOXYCYCLINE HYCLATE 100 MG CAPSULE PO SCH ×2 (08:47→16:41)
[2017-12-12] MEDS: MULTIVITAMINS WITH MINERALS, THERAPEUTIC TABLET PO SCH (08:47)
[2017-12-12] MEDS: NALTREXONE HCL 50 MG TABLET PO SCH (08:47)
[2017-12-12] MEDS: CloZAPine 25 MG TABLET PO SCH ×2 (08:47→20:33)
[2017-12-12] MEDS: BACITRACIN 28.4 GM OINTMENT TP SCH ×2 (08:48→17:09)
[2017-12-12 16:11] VITALS: BP 110/78
[2017-12-13 02:05] VITALS: BP 112/81
[2017-12-13] MEDS: LORazepam 0.5 MG TABLET PO PRN ×4 (02:18→20:24)
[2017-12-13] MEDS: NALTREXONE HCL 50 MG TABLET PO SCH (08:52)
[2017-12-13] MEDS: MULTIVITAMINS WITH MINERALS, THERAPEUTIC TABLET PO SCH (08:52)
[2017-12-13] MEDS: DOXYCYCLINE HYCLATE 100 MG CAPSULE PO SCH ×2 (08:52→16:23)
[2017-12-13] MEDS: GABAPENTIN 100 MG CAPSULE PO SCH ×4 (08:52→20:22)
[2017-12-13] MEDS: CloZAPine 25 MG TABLET PO SCH ×2 (08:52→20:22)
[2017-12-13] MEDS: BACITRACIN 28.4 GM OINTMENT TP SCH ×2 (08:53→16:23)
[2017-12-13 08:56] VITALS: BP 125/80
[2017-12-13 16:37] VITALS: BP 136/67
[2017-12-14 00:20] VITALS: BP 118/86
[2017-12-14] MEDS: ZOLPIDEM TARTRATE 10 MG TABLET PO PRN ×2 (00:20→21:45)
[2017-12-14 03:10] VITALS: BP 128/78
[2017-12-14] MEDS: LORazepam 0.5 MG TABLET PO PRN ×4 (03:20→17:44)
[2017-12-14] MEDS: NALTREXONE HCL 50 MG TABLET PO SCH (08:32)
[2017-12-14] MEDS: DOXYCYCLINE HYCLATE 100 MG CAPSULE PO SCH ×2 (08:32→16:01)
[2017-12-14] MEDS: GABAPENTIN 100 MG CAPSULE PO SCH ×4 (08:33→20:20)
[2017-12-14] MEDS: MULTIVITAMINS WITH MINERALS, THERAPEUTIC TABLET PO SCH (08:33)
[2017-12-14] MEDS: BACITRACIN 28.4 GM OINTMENT TP SCH ×2 (08:36→16:01)
[2017-12-14 08:41] VITALS: BP 110/81
[2017-12-14] MEDS ORDERED: CloZAPine 25 MG TABLET PO SCH (09:00)
[2017-12-14 16:18] VITALS: BP 122/87
[2017-12-14] MEDS ORDERED: CloZAPine 100 MG TABLET PO SCH (21:00)
[2017-12-15] VITALS: BP 124/92
[2017-12-15] MEDS: LORazepam 0.5 MG TABLET PO PRN ×4 (00:04→20:54)
[2017-12-15] MEDS: NALTREXONE HCL 50 MG TABLET PO SCH (08:24)
[2017-12-15] MEDS: GABAPENTIN 100 MG CAPSULE PO SCH ×4 (08:25→20:47)
[2017-12-15] MEDS: DOXYCYCLINE HYCLATE 100 MG CAPSULE PO SCH ×2 (08:25→16:06)
[2017-12-15] MEDS: MULTIVITAMINS WITH MINERALS, THERAPEUTIC TABLET PO SCH (08:25)
[2017-12-15] MEDS: BACITRACIN 28.4 GM OINTMENT TP SCH ×2 (08:26→16:06)
[2017-12-15] MEDS ORDERED: CloZAPine 25 MG TABLET PO SCH (09:00)
[2017-12-15 13:08] VITALS: BP 103/69
[2017-12-15 16:40] VITALS: BP 121/80
[2017-12-15] MEDS ORDERED: CloZAPine 100 MG TABLET PO SCH (21:00)
[2017-12-16] MEDS: OLANZapine 5 MG RAPDIS TABLET PO PRN (01:56)
[2017-12-16] MEDS: IBUPROFEN 600 MG TABLET PO PRN (01:56)
[2017-12-16 02:20] VITALS: BP 124/78
[2017-12-16 06:25] VITALS: BP 128/86
[2017-12-16] MEDS: LORazepam 0.5 MG TABLET PO PRN ×2 (06:37→12:44)
[2017-12-16] MEDS: ACETAMINOPHEN 325 MG TABLET PO PRN (06:37)
[2017-12-16] MEDS: GABAPENTIN 100 MG CAPSULE PO SCH ×4 (08:23→21:25)
[2017-12-16] MEDS: DOXYCYCLINE HYCLATE 100 MG CAPSULE PO SCH ×2 (08:23→17:16)
[2017-12-16] MEDS: NALTREXONE HCL 50 MG TABLET PO SCH (08:23)
[2017-12-16 08:35] VITALS: BP 107/84
[2017-12-16 08:39] LABS: BASOPHILS % (AUTO) 0.6 % (0.0-2.0); EOSINOPHILS % (AUTO) 1.1 % (1.0-6.0); HEMOGLOBIN 13.2 g/dL (13.5-17.5); LYMPHOCYTES # (AUTO) 1.7 K/uL (1.0-4.8); LYMPHOCYTES % (AUTO) 25.3 % (22.0-44.0); MEAN CORPUSCULAR HEMOGLOBIN 32.5 pg (26.0-34.0); MEAN CORPUSCULAR HGB CONC 33.7 G/dL (31.0-37.0); MEAN CORPUSCULAR VOLUME 97 fL (80-100); MONOCYTES # (AUTO) 0.4 K/uL (0.1-1.0); MONOCYTES % (AUTO) 6.1 % (2.0-9.0); NEUTROPHILS # (AUTO) 4.4 K/uL (1.8-7.7); NEUTROPHILS % (AUTO) 66.9 % (40.0-70.0); PLATELET COUNT (AUTO) 116 K/uL (150-450); RED BLOOD CELL COUNT(AUTO) 4.04 MIL/uL (4.50-5.90); RED CELL DISTRIBUTION WIDTH 13.9 % (11.5-14.5)
[2017-12-16] MEDS ORDERED: CloZAPine 25 MG TABLET PO SCH (09:00)
[2017-12-16] MEDS: BACITRACIN 28.4 GM OINTMENT TP SCH ×2 (09:01→17:17)
[2017-12-16 09:48] LABS: APPEARANCE,URINE CLEAR (CLEAR); BILIRUBIN,URINE NEGATIVE (NEGATIVE); GLUCOSE, URINE (UA) NEGATIVE (NEGATIVE); KETONES,URINE NEGATIVE (NEGATIVE); LEUKOCYTE ESTERASE ,URINE NEGATIVE (NEGATIVE); NITRATE,URINE NEGATIVE (NEGATIVE); OCCULT BLOOD,URINE NEGATIVE (NEGATIVE); PROTEIN,URINE NEGATIVE (NEGATIVE); UROBILINOGEN,URINE 0.2 mg/dL (<=1.0)
[2017-12-16] MEDS: MULTIVITAMINS WITH MINERALS, THERAPEUTIC TABLET PO SCH (09:48)
[2017-12-16 16:20] VITALS: BP 140/90
[2017-12-16] MEDS ORDERED: CloZAPine 100 MG TABLET PO SCH (21:00)
[2017-12-17 02:05] VITALS: BP 133/88
[2017-12-17] MEDS: LORazepam 0.5 MG TABLET PO PRN ×3 (02:10→16:20)
[2017-12-17] MEDS: ZOLPIDEM TARTRATE 10 MG TABLET PO PRN ×2 (02:10→21:01)
[2017-12-17] MEDS: NALTREXONE HCL 50 MG TABLET PO SCH (08:22)
[2017-12-17] MEDS: CloZAPine 100 MG TABLET PO SCH ×2 (08:22→20:43)
[2017-12-17] MEDS: MULTIVITAMINS WITH MINERALS, THERAPEUTIC TABLET PO SCH (08:22)
[2017-12-17] MEDS: GABAPENTIN 100 MG CAPSULE PO SCH ×4 (08:24→20:43)
[2017-12-17 08:29] VITALS: BP 130/82
[2017-12-17 09:00] VITALS: BP 135/85
[2017-12-17] MEDS: IBUPROFEN 600 MG TABLET PO PRN ×2 (09:39→16:20)
[2017-12-17 16:20] VITALS: BP 144/75
[2017-12-18 01:49] VITALS: BP 125/78
[2017-12-18] MEDS: LORazepam 0.5 MG TABLET PO PRN ×4 (01:50→20:24)
[2017-12-18] MEDS: OLANZapine 5 MG RAPDIS TABLET PO PRN (01:50)
[2017-12-18 08:54] VITALS: BP 140/82
[2017-12-18] MEDS: CloZAPine 100 MG TABLET PO SCH ×2 (08:59→20:24)
[2017-12-18] MEDS: GABAPENTIN 100 MG CAPSULE PO SCH ×4 (08:59→20:24)
[2017-12-18] MEDS: MULTIVITAMINS WITH MINERALS, THERAPEUTIC TABLET PO SCH (08:59)
[2017-12-18] MEDS: NALTREXONE HCL 50 MG TABLET PO SCH (08:59)
[2017-12-18 09:58] VITALS: BP 134/75
[2017-12-18] MEDS: IBUPROFEN 600 MG TABLET PO PRN (10:01)
[2017-12-18 16:35] VITALS: BP 123/85
[2017-12-18] MEDS: ZOLPIDEM TARTRATE 10 MG TABLET PO PRN (22:49)
[2017-12-19 08:35] VITALS: BP 128/89
[2017-12-19] MEDS ORDERED: CloZAPine 25 MG TABLET PO SCH (09:00)
[2017-12-19] MEDS: NALTREXONE HCL 50 MG TABLET PO SCH (09:33)
[2017-12-19] MEDS: MULTIVITAMINS WITH MINERALS, THERAPEUTIC TABLET PO SCH (09:33)
[2017-12-19] MEDS: GABAPENTIN 100 MG CAPSULE PO SCH ×4 (09:33→20:24)
[2017-12-19] MEDS: LORazepam 0.5 MG TABLET PO PRN ×2 (09:33→16:28)
[2017-12-19 16:22] VITALS: BP 128/77
[2017-12-19] MEDS ORDERED: CloZAPine 100 MG TABLET PO SCH (21:00)
[2017-12-20] VITALS: BP 131/81
[2017-12-20] MEDS: LORazepam 0.5 MG TABLET PO PRN ×4 (00:16→18:26)
[2017-12-20] MEDS: IBUPROFEN 600 MG TABLET PO PRN (00:16)
[2017-12-20 05:03] VITALS: BP 124/92
[2017-12-20] MEDS: GABAPENTIN 100 MG CAPSULE PO SCH ×4 (08:35→21:38)
[2017-12-20] MEDS: MULTIVITAMINS WITH MINERALS, THERAPEUTIC TABLET PO SCH (08:35)
[2017-12-20] MEDS: NALTREXONE HCL 50 MG TABLET PO SCH (08:35)
[2017-12-20] MEDS ORDERED: CloZAPine 25 MG TABLET PO SCH (09:00)
[2017-12-20 09:44] VITALS: BP 126/72
[2017-12-20 16:33] VITALS: BP 119/76
[2017-12-20] MEDS ORDERED: CloZAPine 100 MG TABLET PO SCH (21:00)
[2017-12-21 03:17] VITALS: BP 132/89
[2017-12-21] MEDS: LORazepam 0.5 MG TABLET PO PRN ×3 (03:19→16:07)
[2017-12-21] MEDS: NALTREXONE HCL 50 MG TABLET PO SCH (08:23)
[2017-12-21] MEDS: MULTIVITAMINS WITH MINERALS, THERAPEUTIC TABLET PO SCH (08:23)
[2017-12-21] MEDS: GABAPENTIN 100 MG CAPSULE PO SCH ×4 (08:23→20:15)
[2017-12-21] MEDS: CloZAPine 100 MG TABLET PO SCH ×2 (08:23→20:15)
[2017-12-21 08:55] VITALS: BP 129/81
[2017-12-21 16:17] VITALS: BP 135/77
[2017-12-21] MEDS: ZOLPIDEM TARTRATE 10 MG TABLET PO PRN (21:48)
[2017-12-22 04:51] VITALS: BP 130/88
[2017-12-22] MEDS: LORazepam 0.5 MG TABLET PO PRN ×4 (04:59→20:26)
[2017-12-22 08:14] VITALS: BP 126/70
[2017-12-22] MEDS: GABAPENTIN 100 MG CAPSULE PO SCH ×4 (08:50→20:26)
[2017-12-22] MEDS: MULTIVITAMINS WITH MINERALS, THERAPEUTIC TABLET PO SCH (08:51)
[2017-12-22] MEDS: CloZAPine 100 MG TABLET PO SCH ×2 (08:51→20:26)
[2017-12-22] MEDS: NALTREXONE HCL 50 MG TABLET PO SCH (08:51)
[2017-12-22 16:23] VITALS: BP 143/77
[2017-12-22] MEDS: ZOLPIDEM TARTRATE 10 MG TABLET PO PRN (21:34)
[2017-12-22 21:35] VITALS: BP 124/68
[2017-12-23] MEDS: LORazepam 0.5 MG TABLET PO PRN ×4 (00:22→22:48)
[2017-12-23] MEDS: OLANZapine 5 MG RAPDIS TABLET PO PRN (00:22)
[2017-12-23 00:30] VITALS: BP 119/79
[2017-12-23 08:11] VITALS: BP 115/78
[2017-12-23] MEDS: GABAPENTIN 100 MG CAPSULE PO SCH ×4 (08:17→21:16)
[2017-12-23] MEDS: MULTIVITAMINS WITH MINERALS, THERAPEUTIC TABLET PO SCH (08:17)
[2017-12-23] MEDS: NALTREXONE HCL 50 MG TABLET PO SCH (08:17)
[2017-12-23] MEDS: CloZAPine 100 MG TABLET PO SCH ×2 (08:17→21:17)
[2017-12-23 08:34] LABS: BASOPHILS % (AUTO) 0.4 % (0.0-2.0); EOSINOPHILS % (AUTO) 0.7 % (1.0-6.0); HEMATOCRIT 40.9 % (41-53); HEMOGLOBIN 13.8 g/dL (13.5-17.5); LYMPHOCYTES # (AUTO) 1.4 K/uL (1.0-4.8); LYMPHOCYTES % (AUTO) 19.7 % (22.0-44.0); MEAN CORPUSCULAR HEMOGLOBIN 32.4 pg (26.0-34.0); MEAN CORPUSCULAR HGB CONC 33.8 G/dL (31.0-37.0); MEAN CORPUSCULAR VOLUME 96 fL (80-100); MONOCYTES # (AUTO) 0.5 K/uL (0.1-1.0); MONOCYTES % (AUTO) 6.7 % (2.0-9.0); NEUTROPHILS # (AUTO) 5.3 K/uL (1.8-7.7); NEUTROPHILS % (AUTO) 72.5 % (40.0-70.0); PLATELET COUNT (AUTO) 119 K/uL (150-450); RED BLOOD CELL COUNT(AUTO) 4.27 MIL/uL (4.50-5.90); RED CELL DISTRIBUTION WIDTH 14.2 % (11.5-14.5)
[2017-12-23 10:35] VITALS: BP 122/79
[2017-12-23] MEDS: IBUPROFEN 600 MG TABLET PO PRN (10:38)
[2017-12-23 16:00] VITALS: BP 143/86
[2017-12-23 17:17] VITALS: BP 143/86
[2017-12-23] MEDS: ACETAMINOPHEN 325 MG TABLET PO PRN (17:24)
[2017-12-24 06:06] VITALS: BP 128/78
[2017-12-24] MEDS: CloZAPine 100 MG TABLET PO SCH ×2 (08:36→20:11)
[2017-12-24] MEDS: MULTIVITAMINS WITH MINERALS, THERAPEUTIC TABLET PO SCH (08:36)
[2017-12-24] MEDS: GABAPENTIN 100 MG CAPSULE PO SCH ×4 (08:36→20:11)
[2017-12-24] MEDS: NALTREXONE HCL 50 MG TABLET PO SCH (08:36)
[2017-12-24 08:37] VITALS: BP 115/76
[2017-12-24] MEDS: LORazepam 0.5 MG TABLET PO PRN (13:39)
[2017-12-24 16:39] VITALS: BP 135/85
[2017-12-24] MEDS: ZOLPIDEM TARTRATE 10 MG TABLET PO PRN (21:20)
[2017-12-25 05:36] VITALS: BP 132/86
[2017-12-25 08:00] VITALS: BP 134/84
[2017-12-25] MEDS: GABAPENTIN 100 MG CAPSULE PO SCH ×4 (08:28→20:41)
[2017-12-25] MEDS: LORazepam 0.5 MG TABLET PO PRN (08:29)
[2017-12-25] MEDS: CloZAPine 100 MG TABLET PO SCH ×2 (08:29→20:41)
[2017-12-25] MEDS: NALTREXONE HCL 50 MG TABLET PO SCH (08:29)
[2017-12-25] MEDS: MAGNESIUM HYDROXIDE SUSPENSION 30 ML UDCUP PO PRN (08:29)
[2017-12-25] MEDS: MULTIVITAMINS WITH MINERALS, THERAPEUTIC TABLET PO SCH (08:29)
[2017-12-26 06:48] VITALS: BP 129/79
[2017-12-26] MEDS: LORazepam 0.5 MG TABLET PO PRN (06:54)
[2017-12-26] MEDS: IBUPROFEN 600 MG TABLET PO PRN (06:54)
[2017-12-26 08:09] VITALS: BP 133/86
[2017-12-26] MEDS: NALTREXONE HCL 50 MG TABLET PO SCH (08:51)
[2017-12-26] MEDS: CloZAPine 100 MG TABLET PO SCH ×2 (08:51→20:55)
[2017-12-26] MEDS: GABAPENTIN 100 MG CAPSULE PO SCH ×4 (08:51→20:55)
[2017-12-26] MEDS: MULTIVITAMINS WITH MINERALS, THERAPEUTIC TABLET PO SCH (08:51)
[2017-12-26 16:08] VITALS: BP 105/80
[2017-12-27 05:58] VITALS: BP 116/82
[2017-12-27] MEDS: CloZAPine 100 MG TABLET PO SCH ×2 (08:40→20:35)
[2017-12-27] MEDS: NALTREXONE HCL 50 MG TABLET PO SCH (08:40)
[2017-12-27] MEDS: MULTIVITAMINS WITH MINERALS, THERAPEUTIC TABLET PO SCH (08:40)
[2017-12-27 09:14] VITALS: BP 112/83
[2017-12-27] MEDS: GABAPENTIN 100 MG CAPSULE PO SCH ×4 (09:54→20:35)
[2017-12-27] MEDS: LORazepam 0.5 MG TABLET PO PRN (14:46)
[2017-12-27] MEDS: MAGNESIUM HYDROXIDE SUSPENSION 30 ML UDCUP PO PRN (15:59)
[2017-12-27 16:29] VITALS: BP 128/82
[2017-12-28 02:10] VITALS: BP 122/79
[2017-12-28] MEDS: OLANZapine 5 MG RAPDIS TABLET PO PRN (02:19)
[2017-12-28 05:45] VITALS: BP 120/76
[2017-12-28] MEDS: LORazepam 0.5 MG TABLET PO PRN ×3 (05:48→16:08)
[2017-12-28 08:22] VITALS: BP 139/86
[2017-12-28] MEDS: CloZAPine 100 MG TABLET PO SCH (11:04)
[2017-12-28] MEDS: GABAPENTIN 100 MG CAPSULE PO SCH ×4 (11:04→20:41)
[2017-12-28] MEDS: NALTREXONE HCL 50 MG TABLET PO SCH (11:04)
[2017-12-28] MEDS: MULTIVITAMINS WITH MINERALS, THERAPEUTIC TABLET PO SCH (11:05)
[2017-12-28 16:16] VITALS: BP 115/83
[2017-12-28] MEDS ORDERED: CloZAPine 100 MG TABLET PO SCH (21:00)
[2017-12-29 06:30] VITALS: BP 128/89
[2017-12-29 08:12] VITALS: BP 135/74
[2017-12-29] MEDS: GABAPENTIN 100 MG CAPSULE PO SCH ×3 (08:37→17:00)
[2017-12-29] MEDS: NALTREXONE HCL 50 MG TABLET PO SCH (08:37)
[2017-12-29] MEDS: MULTIVITAMINS WITH MINERALS, THERAPEUTIC TABLET PO SCH (08:37)
[2017-12-29] MEDS: MAGNESIUM HYDROXIDE SUSPENSION 30 ML UDCUP PO PRN (11:27)
[2017-12-29] MEDS: LORazepam 0.5 MG TABLET PO PRN (11:42)
[2017-12-29] MEDS ORDERED: CLOZ100 PO (12:39)
[2017-12-29] MEDS ORDERED: NALT50TA PO (12:39)
[2017-12-29] MEDS ORDERED: GABA-529 PO (12:39)
== END 2017-12-29 15:40 | DRG 885 ==
LOC: B3A 11:17 → B2S 12-02 13:38
PROVIDERS: ADMIT Psychiatry & Neurology Psychiatry; ATTEND Psychiatry & Neurology Psychiatry
DX: F25.0 Schizoaffective disorder, bipolar type (principal); R45.851 Suicidal ideations; F12.90 Cannabis use, unspecified, uncomplicated; K75.9 Inflammatory liver disease, unspecified; J44.9 Chronic obstructive pulmonary disease, unspecified; Z82.49 Family history of ischemic heart disease and other diseases of the circulatory system; Z80.9 Family history of malignant neoplasm, unspecified; Z59.0 Homelessness; Z91.030 Bee allergy status; Z91.19 Patient's noncompliance with other medical treatment and regimen
CPT/HCPCS: 80159; 83036; 84439; 84443; 87081; 90686; 93005; J1200; J1630; J2060; J2794

== ENCOUNTER 2023-04-14 14:55 | Inpatient (IN) | payer MEDICARE, MEDICAID ==
[~2023-04-14] VITALS: Ht 185.4 cm; Wt 65.1 kg
[~2023-04-14 14:55] MED LIST changes: +CLOZ100T68 PO; -DIVA500T52 PO; -NALT50TA6 PO; -RISP2 PO; -RISPC50 IM
[2023-04-14 16:00] VITALS: PULSE 104; RESP 20; O2SAT 92
[2023-04-14] MEDS: IPRATROPIUM BROMIDE 0.5 MG/2.5 ML NEB SOLUTION NEB ONE (16:00)
[2023-04-14] MEDS: ALBUTEROL SULFATE 2.5 MG/0.5 ML 5 ML NEB SOLUTION NEB ONE (16:00)
[2023-04-14] MEDS: MethylPREDNISolone SOD SUCC 125 MG/2 ML VIAL IVP ONE (16:12)
[2023-04-14 16:23] LABS: BASOPHILS % (AUTO) 0.2 % (0.0-2.0); EOSINOPHILS % (AUTO) 0.4 % (1.0-6.0); HEMATOCRIT 35.8 % (41-53); HEMOGLOBIN 11.9 g/dL (13.5-17.5); LYMPHOCYTES # (AUTO) 0.9 K/uL (1.0-4.8); LYMPHOCYTES % (AUTO) 3.3 % (22.0-44.0); MEAN CORPUSCULAR HEMOGLOBIN 30.4 pg (26.0-34.0); MEAN CORPUSCULAR HGB CONC 33.2 G/dL (31.0-37.0); MEAN CORPUSCULAR VOLUME 92 fL (80-100); MONOCYTES % (AUTO) 7.1 % (2.0-9.0); NEUTROPHILS # (AUTO) 25.1 K/uL (1.8-7.7); PLATELET COUNT (AUTO) 387 K/uL (150-450); RED BLOOD CELL COUNT(AUTO) 3.91 MIL/uL (4.50-5.90); RED CELL DISTRIBUTION WIDTH 13.9 % (11.5-14.5); WHITE BLOOD COUNT (AUTO) 28.2 K/uL (4.5-11.0)
[2023-04-14 16:30] LABS: ANION GAP 7 mmol/L (8-16); CALCIUM, TOTAL 8.8 mg/dL (8.8-10.5); CARBON DIOXIDE 27 mmol/L (22-29); CHLORIDE 99 mmol/L (98-107); CREATININE 1.16 mg/dL (0.60-1.30); GLOMERULAR FILTR. RATE CALC > 60 mL/min (>60); GLUCOSE,RANDOM 106 mg/dL (70-110); POTASSIUM 4.4 mmol/L (3.5-5.1); SODIUM SERUM 132 mmol/L (136-145); UREA NITROGEN, BLOOD 37 mg/dL (7-18)
[2023-04-14 16:32] LABS: COVID AG,FIA SOURCE NASAL SWAB
[2023-04-14 16:36] LABS: ALANINE AMINOTRANSFERASE 121 U/L (12-78); ALBUMIN 1.9 g/dL (3.4-5.0); ALKALINE PHOSPHATASE 93 U/L (46-116); ASPARTATE AMINOTRANSFERASE 138 U/L (15-37); BILIRUBIN,TOTAL 0.5 mg/dL (0.1-1.0); CREATINE KINASE, TOTAL ONLY 56 U/L (39-308); TOTAL PROTEIN, SERUM 7.1 g/dL (6.4-8.2)
[2023-04-14 16:41] LABS: TROPONIN I-HIGH SENSITIVITY Less Than 4 ng/L (<76)
[2023-04-14 16:45] LABS: B-TYPE NATRIURETIC PEPTIDE 33 pg/mL (0-100)
[2023-04-14 16:59] LABS: INFLUENZA TYPE A NEGATIVE FOR TYPE A (NEGATIVE); INFLUENZA TYPE B NEGATIVE FOR TYPE B (NEGATIVE); SARS-COV2 (COVID) ANTIGEN,FIA Negative (Negative)
[2023-04-14 17:00] VITALS: PULSE 110; RESP 25; O2SAT 91
[2023-04-14] MEDS ORDERED: 0.9% SODIUM CHLORIDE 10 ML SYRINGE IVP PRN ×2 (17:00→21:30)
[2023-04-14] MEDS ORDERED: ONDANSETRON HCL 4 MG/2 ML VIAL IVP PRN ×2 (17:00→21:30)
[2023-04-14] MEDS ORDERED: ACETAMINOPHEN 325 MG TABLET PO PRN (17:00)
[2023-04-14 17:03] LABS: LACTIC ACID 1.7 mmol/L (0.4-2.0)
[2023-04-14] MEDS: SODIUM CHLORIDE 0.9% 1,000 ML IV ONE ×3 (17:32→23:46)
[2023-04-14] MEDS: AZITHROMYCIN 500 MG/NS 250 ML IV ONE (17:33)
[2023-04-14] MEDS: CefTRIAXone 1 GM/DEXTROSE 50 ML IV ONE (17:33)
[2023-04-14 19:22] VITALS: BP 119/71; PULSE 106; RESP 20; TEMP 98.3
[2023-04-14] MEDS ORDERED: ALBUTEROL SULFATE 2.5 MG/0.5 ML NEB SOLUTION NEB PRN (21:45)
[2023-04-14] MEDS: CloZAPine 100 MG TABLET PO SCH (22:25)
[2023-04-15] VITALS (13 sets, daily range): BP systolic 114–151; BP diastolic 75–90; PULSE 80–117; RESP 2–22; TEMP 97.7–98.8; O2SAT 84–96
[2023-04-15] MEDS: ALBUTEROL SULFATE 2.5 MG/0.5 ML NEB SOLUTION NEB SCH (00:25)
[2023-04-15] MEDS: IPRATROPIUM BROMIDE 0.5 MG/2.5 ML NEB SOLUTION NEB SCH (00:25)
[2023-04-15 06:51] LABS: HEMATOCRIT 34.6 % (41-53); HEMOGLOBIN 11.5 g/dL (13.5-17.5); MEAN CORPUSCULAR HEMOGLOBIN 30.2 pg (26.0-34.0); MEAN CORPUSCULAR HGB CONC 33.3 G/dL (31.0-37.0); MEAN CORPUSCULAR VOLUME 91 fL (80-100); PLATELET COUNT (AUTO) 365 K/uL (150-450); RED BLOOD CELL COUNT(AUTO) 3.81 MIL/uL (4.50-5.90); RED CELL DISTRIBUTION WIDTH 14.1 % (11.5-14.5); WHITE BLOOD COUNT (AUTO) 26.1 K/uL (4.5-11.0)
[2023-04-15 07:22] LABS: ALANINE AMINOTRANSFERASE 155 U/L (12-78); ALBUMIN 1.7 g/dL (3.4-5.0); ALKALINE PHOSPHATASE 100 U/L (46-116); ANION GAP 10 mmol/L (8-16); ASPARTATE AMINOTRANSFERASE 134 U/L (15-37); BILIRUBIN,TOTAL 0.4 mg/dL (0.1-1.0); CALCIUM, TOTAL 8.6 mg/dL (8.8-10.5); CARBON DIOXIDE 25 mmol/L (22-29); CHLORIDE 103 mmol/L (98-107); CREATININE 0.81 mg/dL (0.60-1.30); GLOMERULAR FILTR. RATE CALC > 60 mL/min (>60); GLUCOSE,RANDOM 153 mg/dL (70-110); SODIUM SERUM 138 mmol/L (136-145); TOTAL PROTEIN, SERUM 6.9 g/dL (6.4-8.2); UREA NITROGEN, BLOOD 25 mg/dL (7-18)
[2023-04-15 08:17] LABS: BAND NEUTROPHILS % (MANUAL) 16 % (0-5); LYMPHOCYTES % (MANUAL) 3 % (22-44); MONOCYTES % (MANUAL) 3 % (2-9); RBC MORPHOLOGY COMMENT NORMAL RBC MORPH; SEGMENTED NEUTROPHILS % 78 % (40-70); TOTAL CELLS COUNTED 100
[2023-04-15] MEDS: GABAPENTIN 100 MG CAPSULE PO SCH (08:31)
[2023-04-15] MEDS: DOCUSATE SODIUM 100 MG CAPSULE PO SCH (08:31)
[2023-04-15] MEDS: PANTOPRAZOLE SODIUM 40 MG/VIAL IVP SCH (08:31)
[2023-04-15] MEDS ORDERED: SODIUM CHLORIDE 0.9% 250 ML IV ONE (15:05)
[2023-04-15 15:49] LABS: INR 1.1 (0.9-1.1); PROTHROMBIN TIME 11.9 SEC (9.4-11.6)
[2023-04-15] MEDS: CefTRIAXone 1 GM/DEXTROSE 50 ML IV SCH (15:50)
[2023-04-15] MEDS: MethylPREDNISolone SOD SUCC 40 MG/ML VIAL IVP SCH (15:51)
[2023-04-15] MEDS: OxyCODONE HCL/ACETAMINOPHEN 5-325 MG TABLET PO PRN (15:58)
[2023-04-15] MEDS ORDERED: ALBUTEROL SULFATE 2.5 MG/0.5 ML NEB SOLUTION NEB SCH (16:00)
[2023-04-15] MEDS ORDERED: IPRATROPIUM BROMIDE 0.5 MG/2.5 ML NEB SOLUTION NEB SCH (16:00)
[2023-04-15] MEDS: AZITHROMYCIN 500 MG/NS 250 ML IV SCH (16:32)
[2023-04-16] VITALS (11 sets, daily range): BP systolic 131–159; BP diastolic 76–95; PULSE 106–117; RESP 18–23; TEMP 97.6–98.3; O2SAT 93–99
[2023-04-16 08:06] LABS: HEPATITIS A ANTIBODY IGM Negative (Negative); HEPATITIS B CORE IGM Positive (Negative)
[2023-04-16] MEDS: OxyCODONE HCL/ACETAMINOPHEN 5-325 MG TABLET PO PRN (10:52)
[2023-04-16] MEDS ORDERED: CloZAPine 100 MG TABLET PO SCH (21:00)
[2023-04-17] VITALS (10 sets, daily range): BP systolic 131–163; BP diastolic 85–100; PULSE 94–114; RESP 18–20; TEMP 97.5–99.3; O2SAT 93–96
[2023-04-17] MEDS: ACETAMINOPHEN 325 MG TABLET PO PRN (05:52)
[2023-04-17] MEDS: MethylPREDNISolone SOD SUCC 40 MG/ML VIAL IVP SCH (08:05)
[2023-04-17] MEDS ORDERED: MIDAZOLAM HCL 2 MG/2 ML VIAL ONE (18:08)
[2023-04-17] MEDS ORDERED: LIDOCAINE/PF 1% 30 ML VIAL ONE (18:08)
[2023-04-17] MEDS ORDERED: FentaNYL CITRATE PF 100 MCG/2 ML VIAL ONE (18:08)
[2023-04-17] MEDS: LIDOCAINE 1% 30 ML/SOD BICARB 8.4% 4 ML SQ ONE (19:24)
[2023-04-17] MEDS: FentaNYL CITRATE PF 100 MCG/2 ML VIAL IVP ONE (19:24)
[2023-04-17] MEDS: MIDAZOLAM HCL 2 MG/2 ML VIAL IVP ONE (19:24)
[2023-04-17 20:20] LABS: SPECIMENTYPE,BODY FLUID PLEURAL
[2023-04-17 21:23] LABS: APPEARANCE,SPUN,BODY FLUID CLEAR (CLEAR); APPEARANCE,UNSPUN,BODY FLUID CLOUDY (CLEAR)
[2023-04-17 21:24] LABS: BASOPHILS,BODY FLUID 0 %; COLOR,BODY FLUID YELLOW (LT YELLOW); EOSINOPHILS,BF (ANAL) 0 %; LYMPHOCYTES,BODY FLUID 9 %; MONOCYTES,BODY FLUID 14 %; NEUTROPHILS,BODY FLUID 77 %; TOTAL VOLUME,BODY FLUID 20 mL; WBC, BODY FLUID 27330 /cu. mm.
[2023-04-18] VITALS (13 sets, daily range): BP systolic 141–157; BP diastolic 87–106; PULSE 85–120; RESP 18–22; TEMP 97.2–98.5; O2SAT 93–97
[2023-04-18 20:07] LABS: HEPATITIS C AB (EIA) Reactive (Non Reactive); HEPATITIS C RT-PCR,QNT HCV Not Detected IU/mL
[2023-04-19] VITALS (11 sets, daily range): BP systolic 120–140; BP diastolic 74–83; PULSE 101–115; RESP 17–20; TEMP 97–98.8; O2SAT 93–95
[2023-04-19 01:12] LABS: ABG BASE EXCESS 5.8 mmol/L (-2.0-3.0); ABG CARBOXYHEMOGLOBIN 0.7 % (0.0-1.5); ABG HCO3 29.3 mmol/L (22.0-26.0); ABG METHEMOGLOBIN 0.3 % (0.0-1.5); ABG OXYGEN CONTENT 18.1 mL/dL (15.0-23.0); ABG OXYGEN SATURATION 94.7 % (95.0-98.0); ABG OXYHEMOGLOBIN 93.8 % (94.0-100.0); ABG PCO2 41 mmHg (35-45); ABG PH 7.478 (7.35-7.450); ABG TOTAL HEMOGLOBIN 13.7 G/dL (12.0-18.0); PO2, ARTERIAL BG 72.5 mmHg (79.0-87.0); SOURCE, BLOOD GAS ARTERIAL; TEMPERATURE, FAHRENHEIT, BG 98.7 FAHREN (96.0-98.6)
[2023-04-19 01:13] LABS: ALLEN TEST, BLOOD GAS Positive; O2 DEVICE,BLOOD GAS CANNULA (ROOM AIR); SITE, BLOOD GAS RT RADIAL
[2023-04-19 07:02] LABS: BASOPHILS % (AUTO) 0.1 % (0.0-2.0); EOSINOPHILS % (AUTO) 0.6 % (1.0-6.0); HEMATOCRIT 37.9 % (41-53); HEMOGLOBIN 12.7 g/dL (13.5-17.5); LYMPHOCYTES # (AUTO) 1.5 K/uL (1.0-4.8); MEAN CORPUSCULAR HEMOGLOBIN 30.1 pg (26.0-34.0); MEAN CORPUSCULAR HGB CONC 33.5 G/dL (31.0-37.0); MEAN CORPUSCULAR VOLUME 90 fL (80-100); MONOCYTES # (AUTO) 0.8 K/uL (0.1-1.0); MONOCYTES % (AUTO) 3.4 % (2.0-9.0); PLATELET COUNT (AUTO) 470 K/uL (150-450); RED BLOOD CELL COUNT(AUTO) 4.22 MIL/uL (4.50-5.90); RED CELL DISTRIBUTION WIDTH 14.1 % (11.5-14.5); WHITE BLOOD COUNT (AUTO) 24.5 K/uL (4.5-11.0)
[2023-04-19 07:15] LABS: NEUTROPHILS % (AUTO) 89.9 % (40.0-70.0)
[2023-04-19] MEDS ORDERED: OMEP-99 PO (11:56)
[2023-04-20] VITALS (11 sets, daily range): BP systolic 117–135; BP diastolic 72–87; PULSE 78–106; RESP 16–20; TEMP 97.7–98.6; O2SAT 92–98
[2023-04-21] VITALS (11 sets, daily range): BP systolic 115–143; BP diastolic 77–88; PULSE 89–110; RESP 16–20; TEMP 97.6–99; O2SAT 92–98
[2023-04-21 13:07] LABS: TOTAL PROTEIN,BODY FLUID,REF 4.9 g/dL
[2023-04-21 14:07] LABS: GLUCOSE, BODY FLUID,REF <2 mg/dL
[2023-04-21] MEDS ORDERED: SODIUM CHLORIDE 0.9% 250 ML IV ONE (17:06)
[2023-04-22] VITALS (9 sets, daily range): BP systolic 118–151; BP diastolic 69–89; PULSE 87–101; RESP 18–20; TEMP 97.4–97.9; O2SAT 96–99
[2023-04-22 18:24] LABS: BASOPHILS % (AUTO) 0.4 % (0.0-2.0); EOSINOPHILS % (AUTO) 0.1 % (1.0-6.0); HEMATOCRIT 35.5 % (41-53); HEMOGLOBIN 11.7 g/dL (13.5-17.5); LYMPHOCYTES # (AUTO) 0.9 K/uL (1.0-4.8); LYMPHOCYTES % (AUTO) 3.6 % (22.0-44.0); MEAN CORPUSCULAR HEMOGLOBIN 30.1 pg (26.0-34.0); MEAN CORPUSCULAR VOLUME 91 fL (80-100); MONOCYTES # (AUTO) 0.7 K/uL (0.1-1.0); MONOCYTES % (AUTO) 2.7 % (2.0-9.0); NEUTROPHILS # (AUTO) 22.7 K/uL (1.8-7.7); PLATELET COUNT (AUTO) 431 K/uL (150-450); RED CELL DISTRIBUTION WIDTH 14.4 % (11.5-14.5); WHITE BLOOD COUNT (AUTO) 24.3 K/uL (4.5-11.0)
[2023-04-22 18:27] LABS: NEUTROPHILS % (AUTO) 93.2 % (40.0-70.0)
[2023-04-22 18:32] LABS: ANION GAP 6 mmol/L (8-16); CALCIUM, TOTAL 8.6 mg/dL (8.8-10.5); CARBON DIOXIDE 28 mmol/L (22-29); CHLORIDE 98 mmol/L (98-107); CREATININE 0.79 mg/dL (0.60-1.30); GLOMERULAR FILTR. RATE CALC > 60 mL/min (>60); GLUCOSE,RANDOM 213 mg/dL (70-110); POTASSIUM 4.2 mmol/L (3.5-5.1); SODIUM SERUM 132 mmol/L (136-145); UREA NITROGEN, BLOOD 25 mg/dL (7-18)
[2023-04-22 18:39] LABS: ALANINE AMINOTRANSFERASE 91 U/L (12-78); ALBUMIN 1.8 g/dL (3.4-5.0); ALKALINE PHOSPHATASE 93 U/L (46-116); ASPARTATE AMINOTRANSFERASE 31 U/L (15-37); BILIRUBIN,TOTAL 0.2 mg/dL (0.1-1.0); TOTAL PROTEIN, SERUM 6.6 g/dL (6.4-8.2)
[2023-04-22 19:18] LABS: RBC MORPHOLOGY COMMENT ABNORMAL RBC MORPH
[2023-04-23] VITALS (11 sets, daily range): BP systolic 123–158; BP diastolic 69–98; PULSE 87–102; RESP 16–19; TEMP 97.5–99.8; O2SAT 93–98
[2023-04-23] MEDS: MAGNESIUM HYDROXIDE SUSPENSION 30 ML UDCUP PO PRN (06:24)
[2023-04-23 11:56] LABS: GLUCOMETER DEV NAME(LOC) 5N.1C; GLUCOSE,POINT OF CARE 105 MG/DL (70-110)
[2023-04-24] VITALS (10 sets, daily range): BP systolic 114–139; BP diastolic 71–95; PULSE 78–105; RESP 16–18; TEMP 97.9–98.5; O2SAT 93–97
[2023-04-24] MEDS: DOXYCYCLINE HYCLATE 100 MG/VIAL IPL ONE (07:30)
[2023-04-24] MEDS ORDERED: SODIUM CHLORIDE 0.45% 0 ML IV ONE (07:40)
[2023-04-24] MEDS ORDERED: SODIUM CHLORIDE 0.9% 100 ML ONE (07:41)
[2023-04-24] MEDS ORDERED: BUPIVACAINE HCL 0.25% 50 ML VIAL ONE (07:43)
[2023-04-24] MEDS ORDERED: BUPIVACAINE HCL/PF 0.25% 30 ML VIAL ONE (07:47)
[2023-04-24] MEDS: ETHYL ALCOHOL 62% ANTISEPTIC NASAL SANITIZER 0.6 ML AMPUL NASAL ONE (08:21)
[2023-04-24] MEDS: SODIUM CHLORIDE 0.9% 1,000 ML IV ONE (08:21)
[2023-04-24] MEDS: CHLORHEXIDINE GLUCONATE 2% TOWELETTE [2'S/6'S] TP ONE (08:21)
[2023-04-24] MEDS ORDERED: RINGERS SOLUTION,LACTATED 1,000 ML IV ONE (10:20)
[2023-04-24] MEDS: BUPIVACAINE HCL/PF 0.25% 30 ML VIAL ONE (10:23)
[2023-04-24] MEDS ORDERED: TRANEXAMIC ACID 1,000 MG/10 ML VIAL ONE (10:55)
[2023-04-24] MEDS ORDERED: ALBUTEROL SULFATE 2.5 MG/0.5 ML NEB SOLUTION NEB ONE (10:57)
[2023-04-24] MEDS ORDERED: IPRATROPIUM BROMIDE 0.5 MG/2.5 ML NEB SOLUTION NEB ONE (10:57)
[2023-04-24] MEDS ORDERED: KETOROLAC TROMETHAMINE 30 MG/ML VIAL ONE (11:38)
[2023-04-24] MEDS ORDERED: KETOROLAC TROMETHAMINE 15 MG/ML VIAL IVP ONE (11:45)
[2023-04-24] MEDS ORDERED: FentaNYL CITRATE PF 100 MCG/2 ML VIAL IVP PRN (11:45)
[2023-04-24] MEDS ORDERED: OMEP20CA12 PO (11:46)
[2023-04-24] MEDS ORDERED: QUET200T30 PO (11:46)
[2023-04-24] MEDS ORDERED: GABA-1181 PO (11:46)
[2023-04-24] MEDS: ALBUTEROL SULFATE 2.5 MG/0.5 ML NEB SOLUTION NEB ONE (11:48)
[2023-04-24] MEDS: IPRATROPIUM BROMIDE 0.5 MG/2.5 ML NEB SOLUTION NEB ONE (11:48)
[2023-04-24] MEDS: KETOROLAC TROMETHAMINE 30 MG/ML VIAL IVP ONE (11:58)
[2023-04-24] MEDS ORDERED: CeFAZolin SODIUM 1 GM VIAL ONE (12:00)
[2023-04-24] MEDS ORDERED: SUGAMMADEX SODIUM 200 MG/2 ML VIAL IVP ONE (12:00)
[2023-04-24] MEDS ORDERED: ROCURONIUM BROMIDE 10 MG/ML 5 ML VIAL ONE (12:00)
[2023-04-24] MEDS ORDERED: PROPOFOL 1% 20 ML VIAL IVP ONE (12:00)
[2023-04-24] MEDS ORDERED: FentaNYL CITRATE PF 100 MCG/2 ML VIAL IVP ONE (12:00)
[2023-04-24] MEDS ORDERED: 0.9% SODIUM CHLORIDE 10 ML VIAL ONE (12:00)
[2023-04-24] MEDS ORDERED: ONDANSETRON HCL 4 MG/2 ML VIAL ONE (12:00)
[2023-04-24] MEDS ORDERED: ALBUTEROL SULFATE HFA 90 MCG/PUFF 8 GM INHALER IH ONE (12:00)
[2023-04-24] MEDS ORDERED: PHENYLEPHRINE HCL 10 MG/ML VIAL ONE (12:00)
[2023-04-24] MEDS ORDERED: KETOROLAC TROMETHAMINE 60 MG/2 ML VIAL IM ONE (12:00)
[2023-04-24] MEDS ORDERED: LIDOCAINE/PF 2% 5 ML VIAL ONE (12:00)
[2023-04-24] MEDS: OxyCODONE HCL/ACETAMINOPHEN 5-325 MG TABLET PO PRN (13:09)
[2023-04-24] MEDS: OXYGEN THERAPY IH SCH (20:55)
[2023-04-25] VITALS (9 sets, daily range): BP systolic 102–158; BP diastolic 63–91; PULSE 62–108; RESP 16–20; TEMP 98–98.5; O2SAT 94–98
[2023-04-25] MEDS ORDERED: SODIUM CHLORIDE 0.9% 250 ML IV ONE (06:13)
[2023-04-25] MEDS: PredniSONE 20 MG TABLET PO SCH (14:22)
[2023-04-26] VITALS (12 sets, daily range): BP systolic 123–152; BP diastolic 76–107; PULSE 90–110; RESP 15–20; TEMP 97–98.1; O2SAT 94–98
[2023-04-27] VITALS (11 sets, daily range): BP systolic 115–139; BP diastolic 68–79; PULSE 89–110; RESP 18–20; TEMP 97.3–98.7; O2SAT 93–98
[2023-04-27 15:12] LABS: BASOPHILS % (AUTO) 0.2 % (0.0-2.0); EOSINOPHILS % (AUTO) 0.2 % (1.0-6.0); HEMATOCRIT 36.6 % (41-53); HEMOGLOBIN 11.9 g/dL (13.5-17.5); LYMPHOCYTES # (AUTO) 0.5 K/uL (1.0-4.8); LYMPHOCYTES % (AUTO) 2.4 % (22.0-44.0); MEAN CORPUSCULAR HEMOGLOBIN 29.8 pg (26.0-34.0); MEAN CORPUSCULAR HGB CONC 32.6 G/dL (31.0-37.0); MEAN CORPUSCULAR VOLUME 92 fL (80-100); MONOCYTES # (AUTO) 0.3 K/uL (0.1-1.0); MONOCYTES % (AUTO) 1.4 % (2.0-9.0); NEUTROPHILS # (AUTO) 21.9 K/uL (1.8-7.7); PLATELET COUNT (AUTO) 327 K/uL (150-450); RED BLOOD CELL COUNT(AUTO) 4.01 MIL/uL (4.50-5.90); RED CELL DISTRIBUTION WIDTH 14.9 % (11.5-14.5); WHITE BLOOD COUNT (AUTO) 22.8 K/uL (4.5-11.0)
[2023-04-27 15:16] LABS: NEUTROPHILS % (AUTO) 95.8 % (40.0-70.0)
[2023-04-28] VITALS (8 sets, daily range): BP systolic 108–127; BP diastolic 64–88; PULSE 69–108; RESP 16–18; TEMP 97.6–98; O2SAT 94–97
[2023-04-28 07:43] LABS: ALANINE AMINOTRANSFERASE 73 U/L (12-78); ALKALINE PHOSPHATASE 86 U/L (46-116); ANION GAP 4 mmol/L (8-16); ASPARTATE AMINOTRANSFERASE 25 U/L (15-37); BILIRUBIN,TOTAL 0.3 mg/dL (0.1-1.0); CALCIUM, TOTAL 8.5 mg/dL (8.8-10.5); CARBON DIOXIDE 31 mmol/L (22-29); CHLORIDE 103 mmol/L (98-107); GLOMERULAR FILTR. RATE CALC > 60 mL/min (>60); GLUCOSE,RANDOM 79 mg/dL (70-110); POTASSIUM 3.9 mmol/L (3.5-5.1); SODIUM SERUM 138 mmol/L (136-145); TOTAL PROTEIN, SERUM 6.3 g/dL (6.4-8.2); UREA NITROGEN, BLOOD 23 mg/dL (7-18)
[2023-04-28] MEDS: BISACODYL 10 MG RECTAL RECTAL SUPPOSITORY PR ONE (14:30)
[2023-04-28] MEDS ORDERED: AMOX1TAB16 PO ×2 (14:49→16:28)
[2023-04-28] MEDS ORDERED: METH4TAB3 PO ×2 (14:49→16:30)
[2023-04-28] MEDS: LACTULOSE 20 GM/30 ML SOLUTION UDCUP PO ONE (17:35)
== END 2023-04-28 19:05 | disposition home or self-care (01) | DRG 853 ==
LOC: EMS 14:55 → 5S 18:11
PROVIDERS: ADMIT Internal Medicine; ATTEND Internal Medicine
PROC: 0W9B30Z Drainage of Left Pleural Cavity with Drainage Device, Percutaneous Approach (ICD-10-PCS; 2023-04-17)
PROC: 0BNL4ZZ Release Left Lung, Percutaneous Endoscopic Approach (ICD-10-PCS; principal; 2023-04-24 09:25)
DX: A41.9 Sepsis, unspecified organism (principal); E43 Unspecified severe protein-calorie malnutrition; J96.91 Respiratory failure, unspecified with hypoxia; J86.9 Pyothorax without fistula; J96.01 Acute respiratory failure with hypoxia; J44.1 Chronic obstructive pulmonary disease with (acute) exacerbation; J90 Pleural effusion, not elsewhere classified; E87.1 Hypo-osmolality and hyponatremia; J98.11 Atelectasis; J44.0 Chronic obstructive pulmonary disease with (acute) lower respiratory infection; Z68.1 Body mass index [BMI] 19.9 or less, adult; Z20.822 Contact with and (suspected) exposure to COVID-19; E86.0 Dehydration; R74.01 Elevation of levels of liver transaminase levels; D63.8 Anemia in other chronic diseases classified elsewhere; F20.9 Schizophrenia, unspecified; F43.10 Post-traumatic stress disorder, unspecified; J43.9 Emphysema, unspecified; R56.9 Unspecified convulsions; Z87.891 Personal history of nicotine dependence
CPT/HCPCS: 36600; 70450; 71045; 71250; 75989; 80053; 80074; 82140; 82550; 82805; 82945; 82962; 83605; 83615; 83880; 84157; 84484; 85025; 85610; 85730; 87015; 87040; 87070; 87075; 87081; 87101; 87205; 87206; 87522; 87804; 88108; 88305; 89051; 93005; 94640; 94644; 97116; 97163; 97167; 97530; 97535; 99285; C9113; G0378; J0456; J0690; J0696; J1885; J2250; J2405; J2704; J2920; J2930; J3010; J3490; J3535; J7030; J7050; J7120; Q9967; 36415-L1; 36415-TC; J7613; Z7610